=== PATIENT | male | born 2000 | race Caucasian/White ===

== ENCOUNTER 2020-04-28 03:30 | Emergency (ER) | payer OTHER ==
[~2020-04-28] VITALS: Ht 172.7 cm; Wt 75.0 kg
[2020-04-28 04:14] VITALS: BP 136/70; PULSE 76
== END 2020-04-28 04:14 | disposition home or self-care (01) ==
LOC: COL.ER 03:30
DX: H57.13 Ocular pain, bilateral (principal); W89.0XXA Exposure to welding light (arc), initial encounter